=== PATIENT | male | born 1970 | race Caucasian/White ===

== ENCOUNTER 2017-04-09 20:37 | Emergency (ER) | payer OTHER ==
[~2017-04-09] VITALS: Ht 188 cm; Wt 129.3 kg
[2017-04-09 21:05] LABS: BASO % 1 % (0-3); EOS % 3 % (0-3); HEMATOCRIT 44.1 % (39.0-53.0); HEMOGLOBIN 15.5 g/dL (13.0-17.5); LYMPH # 1.9 x10^3/uL (1.0-4.8); LYMPH % 32 % (24-48); MEAN CORPUSCULAR HEMOGLOBIN 31 pg (25-35); MEAN CORPUSCULAR HGB CONC 35 g/dL (31-37); MEAN CORPUSCULAR VOLUME 88 fL (79-100); MONO % 12 % (0-9); NEUT % 52 % (31-73); PLATELET COUNT 258 x10^3/uL (140-400); RED BLOOD COUNT 5.02 x10^6/uL (4.30-5.70); RED CELL DISTRIBUTION WIDTH 12.9 % (11.5-14.5); WHITE BLOOD COUNT 6.1 x10^3/uL (4.0-11.0)
--- NOTE | 2017-04-09 21:16 | PHYS DOC ---
Adult General Chief Complaint Chief Complaint: MULTIPLE COMPLAINTS HPI HPI Patient is a 47 year old male brought to the ED by his . Patient complains that for about 2 weeks he has had some "tightness" across his upper back between his shoulders. That has been worse for the past 2 days and also seems to be worse on the left side. He's had no pain at all or tightness or other symptoms in his chest. No diaphoresis. No shortness of air. He's been lightheaded off and on. 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 He used to run quite a bit and in fact a week ago on his lunch break he ran 4 miles and did not have any symptoms during that time. When he runs, he does have some pain in his knees and ankles that he attributes to being overweight. Cardiac risk factors: His mother had a cardiac stent. Patient denies smoking. His blood pressure has been "slightly elevated" in the past but he has never been treated for hypertension, diabetes, or high blood cholesterol. He had some positional chest pain about 10 years ago and had an EKG in the doctor's office that was normal, no other cardiac workup. Review of Systems Review of Systems Constitutional: Denies fever or chills [] Eyes: Denies change in visual acuity, redness, or eye pain [] HENT: Denies nasal congestion or sore throat [] Respiratory: Denies cough or shortness of breath [] Cardiovascular: As in history of present illness GI: Denies abdominal pain, nausea, vomiting, bloody stools or diarrhea [] : Denies dysuria or hematuria [] Musculoskeletal: As in history of present illness Integument: Denies rash or skin lesions [] Neurologic: Denies headache, focal weakness or sensory changes [] Allergies Allergies Allergies Coded Allergies Type Severity Reaction Last Updated Verified No Known Drug Allergies 04/09/17 No Physical Exam Physical Exam Constitutional: Well developed, well nourished, no acute distress, non-toxic appearance. Alert, mentating normally. Nondiaphoretic. HENT: Normocephalic, atraumatic, bilateral external ears normal, nose normal. [ ] Eyes: conjunctiva normal, no discharge. [] Neck: Normal range of motion, no stridor. [] Cardiovascular:Heart rate regular rhythm, no murmur [] Lungs & Thorax: Bilateral breath sounds clear to auscultation [] Abdomen: Bowel sounds normal, soft, no tenderness, no masses, no pulsatile masses. [] Skin: Warm, dry, no erythema, no rash. [] Extremities: No tenderness, no cyanosis, no clubbing, ROM intact, no edema. [] Neurologic: Alert and oriented X 3, normal motor function, normal sensory function, no focal deficits noted. [] Current Patient Data Vital Signs Vital Signs Date Time Temp Pulse Resp B/P (MAP) Pulse Ox O2 Delivery O2 Flow Rate FiO2 04/09/17 20:45 98.3 65 18 159/84 (109) 98 Room Air 98.3 Lab Values Laboratory Tests Test 04/09/17 20:44 White Blood Count 6.1 x10^3/uL (4.0-11.0) Red Blood Count 5.02 x10^6/uL (4.30-5.70) Hemoglobin 15.5 g/dL (13.0-17.5) Hematocrit 44.1 % (39.0-53.0) Mean Corpuscular Volume 88 fL (79-100) Mean Corpuscular Hemoglobin 31 pg (25-35) Mean Corpuscular Hemoglobin Concent 35 g/dL (31-37) Red Cell Distribution Width 12.9 % (11.5-14.5) Platelet Count 258 x10^3/uL (140-400) Neutrophils (%) (Auto) 52 % (31-73) Lymphocytes (%) (Auto) 32 % (24-48) Monocytes (%) (Auto) 12 % (0-9) H Eosinophils (%) (Auto) 3 % (0-3) Basophils (%) (Auto) 1 % (0-3) Neutrophils # (Auto) 3.2 x10^3uL (1.8-7.7) Lymphocytes # (Auto) 1.9 x10^3/uL (1.0-4.8) Monocytes # (Auto) 0.7 x10^3/uL (0.0-1.1) Eosinophils # (Auto) 0.2 x10^3/uL (0.0-0.7) Basophils # (Auto) 0.0 x10^3/uL (0.0-0.2) Magnesium Level 2.3 mg/dL (1.8-2.4) Total Bilirubin 0.6 mg/dL (0.2-1.0) Direct Bilirubin 0.1 mg/dL (0.0-0.2) Aspartate Amino Transferase (AST) 33 U/L (15-37) Alanine Aminotransferase (ALT) 64 U/L (16-63) H Alkaline Phosphatase 72 U/L (46-116) Creatine Kinase 306 U/L (39-308) Creatine Kinase MB (Mass) 2.2 ng/mL (0.0-3.6) Creatine Kinase MB Relative Index 0.7 % (0-4) Troponin I Quantitative < 0.017 ng/mL (0.000-0.055) YE-[id number]-Type Natriuretic Peptide 7 pg/mL (0-124) Total Protein 7.9 g/dL (6.4-8.2) Albumin 4.3 g/dL (3.4-5.0) Lipase 125 U/L (73-393) Laboratory Tests 04/09/17 20:44 EKG EKG 12-lead EKG read by me. Sinus rhythm. Heart rate 60. Her no acute ST or T wave changes indicative of ischemia or infarction. No STEMI. 2044 [] Radiology/Procedures Radiology/Procedures Two-view chest x-ray read by me. Heart size is normal. Lung [place] are clear. No acute abnormalities. [] Course & Med Decision Making Course & Med Decision Making Pertinent Labs and Imaging studies reviewed. (See chart for details) 47-year-old male without significant cardiac risk factors presents with multiple , nonspecific complaints that are not exacerbated by exercise. In fact, he was able to run 4 miles a week ago without symptoms. I discussed with the patient that the amount of cardiac workup we can do in the ED is relatively superficial but we did do EKG, chest x-ray, labs in the ED and all are unremarkable for acute findings. I advised him to follow up with his PCP if he remains concerned or before he starts any drastic change in an exercise plan. He is agreeable area patient is stable for discharge. [] Dragon Disclaimer Dragon Disclaimer This electronic medical record was generated, in whole or in part, using a voice recognition dictation system. Departure Departure Impression: Primary Impression: Upper back pain Additional Impression: Lightheadedness Disposition: 01 HOME, SELF-CARE Condition: STABLE Referrals: UNKNOWN PCP NAME (PCP) Additional Instructions: As we discussed, lab tests, chest x-ray, and EKG here are normal. Your symptoms are nonspecific. In my opinion, your symptoms do not sound like they're probably coming from your heart, especially since you're able to exercise without symptoms. Still, it wouldn't be a bad idea to clear with your physician if you planned to drastically changed and exercise regimen. If other symptoms occur, return or see your doctor. Problem Qualifiers MARBIN FERRARO MD Apr 09, 2017 21:16
[2017-04-09 21:22] LABS: ALBUMIN 4.3 g/dL (3.4-5.0); DIRECT BILIRUBIN 0.1 mg/dL (0.0-0.2); MAGNESIUM 2.3 mg/dL (1.8-2.4); TOTAL BILIRUBIN 0.6 mg/dL (0.2-1.0); TOTAL PROTEIN 7.9 g/dL (6.4-8.2)
[2017-04-09 21:34] LABS: CKMB MASS 2.2 ng/mL (0.0-3.6)
[2017-04-09 22:30] VITALS: BP 123/66
--- NOTE | 2017-04-10 07:00 | EKG ---
[facility] [address] [place] [address] Test Date: 2017-04-09 Test Time: 20:45:18 Pat Name: CRISTAL SHERIDAN Department: Room: Gender: Line Technician: : [id number] Requested By: MARBIN FERRARO Order Number: [id number] Reading MD: Measurements Intervals [place] Rate: 60 P: 46 MO: 162 QRS: 1 QRSD: 90 T: 74 QT: 402 QTc: 406 Interpretive Statements SINUS RHYTHM LEFT ATRIAL ABNORMALITY QRS(T) CONTOUR ABNORMALITY CONSIDER ANTEROLATERAL MYOCARDIAL DAMAGE RI6.01 Unconfirmed report No previous ECG available for comparison
--- NOTE | 2017-04-10 08:43 | RAD ---
Indication chest pain. PA and lateral views of the chest were obtained. No prior imaging is available. The heart and pulmonary vessels appear normal. The lungs are clear. There is no pleural fluid or pneumothorax. Bony structures appear grossly intact. IMPRESSION: No acute or focal process seen in the chest
== END 2017-04-09 22:45 | disposition home or self-care (01) ==
LOC: ER 20:37
DX: M54.6 Pain in thoracic spine (principal); R42 Dizziness and giddiness; R07.9 Chest pain, unspecified
CPT/HCPCS: 36415; 71020; 80076; 82553; 83690; 83735; 83880; 84484; 85027; 93005; 99285-25